=== PATIENT | male | born 1965 | race Caucasian/White ===

== ENCOUNTER 2023-10-12 08:06 | Outpatient (AMB) | payer OTHER, SELFPAY ==
--- NOTE | 2023-10-12 08:08 | AM.OFFWIN_ITS ---
Intake Vital Signs 10/12/23 08:12 Height 5 ft 9 in Weight 188 lb BMI 27.8 BP 130/80 Blood Pressure Location Lt brachial Position Sitting Pulse 82 Pulse Source Pulse Oximeter Temp 98.6 F Temp Source Oral Pulse Oximetry (%) 98 Intake Visit Reasons: B[employer] fever, sore throat (masked) Intake Note: pt is here for fever, sore throat Patient Tobacco Use Status: Never used Tobacco Allergies No Known Allergies Allergy (Verified 10/12/23 08:09) Do you need a note to return to daycare/school/sports/work: No HPI HPI Comments History of Present Illness Details Patient is a 57-year-old male who states his noticed 3 days ago that his tongue is covered in white stuff. He also states he had a fever yes terday of 101 degrees F, he has been a little achy and a little bit of a sore throat and stuffy nose. He denies any cough, head congestion, chest congestion, sinus pain, ear pain, shortness of breath, chest pain, wheezing, nausea, vomiting or diarrhea. He denies any history of asthma or COPD or using any inhalers. He states his grandkids had [id number] disease but he has not noticed any bumps on his hands feet or mouth. [facility], [facility] Social History Patient Tobacco Use Status: Never used Tobacco Review of Systems Const All systems reviewed & are unremarkable except as noted in HPI and below Physical Exam Vital Signs: Last Vital Signs Temp 98.6 F 10/12/23 08:12 Pulse 82 10/12/23 08:12 BP 130/80 10/12/23 08:12 Pulse Ox 98 10/12/23 08:12 BMI result Body Mass Index 27.8 Const General: cooperative, healthy appearing, comfortable and no acute distress Orientation/consciousness: patient oriented x3 Limitations: no limitations HEENT Head: Yes normal to inspection Ears: hearing grossly normal bilaterally, external ears normal and TM's normal bilaterally General nose exam: Normal external nose present, Normal nares present and No nasal discharge present Face and sinus: Yes normal facial exam and Yes sinuses nontender Mouth: Normal oral and palatal mucosa present, moist mucous membranes and tongue abnormal with white coating (cannot scrape off) Throat: Yes tonsils normal, Yes uvula midline and Yes posterior oropharynx abnormal (Erythema) Eyes General: appearance normal, both eyes and all related structures Neck Neck: Yes normal visual inspection Resp Effort & Inspection: normal respiratory effort, able to speak in complete sentences, no respiratory distress, not tachypneic, no tripod positioning and no use of accessory muscles Skin General skin exam: no rashes or lesions noted Neuro General: patient oriented x3 Extrem General: Yes normal to inspection and Yes no clubbing, cyanosis or edema Assessment & Plan Assessment & Plan (1) Oral candidiasis: Code(s): B37.0 - Candidal stomatitis Plan: Recommended trying an aggressive treatment of fluconazole and if no resolution in symptoms to follow up with his PCP or his dentist. Point of care in office was within normal limits. Strep test was negative Plan see above Medications: New fluconazole take 200mg on day one then 100mg days 2-10 100 mg PO DAILY 11 tabs 0RF Coding Level of Care Code New Pt Level 4 (36327) Diagnoses Oral candidiasis B37.0
[2023-10-12 08:12] VITALS: BP 130/80; PULSE 82; TEMP 37; O2SAT 98; BMI 27.8
== END 2023-10-12 08:40 | disposition home or self-care (01) ==
PROVIDERS: PCP Nurse Practitioner Family; Visit Provider Physician Assistant
DX: B37.0 Candidal stomatitis (principal)
CPT/HCPCS: 82948; 99204